=== PATIENT | female | born 1965 | race Caucasian/White ===

== ENCOUNTER 2018-07-06 14:55 | Inpatient (IN) | payer OTHER ==
[~2018-07-06] VITALS: Ht 165.1 cm; Wt 52.5 kg
--- NOTE | ~2018-07-06 | D ---
[facility] [place] [address] DISCHARGE SUMMARY Name: GRICEL CROFT Room #: 52-B DIS IN M.R.#: [id number] Admission: 07/06/18 ������������������ Attend Phys: Wong Dc DO Discharge: 07/12/18 ������������������ Date of : 61 Report #: [id number] THIS REPORT FOR: //name// CC: Wong Green DATE OF SERVICE: 07/12/2018 ATTENDING PHYSICIAN: Wong Dc DO. RUG INSPECTOR HELPER: Gabe Green MD. DISCHARGE DIAGNOSIS: Schizophrenia. MEDICAL COMORBIDITIES: Include urinary tract infection, irritable bowel syndrome, right upper extremity amputation, history of alcoholism, cardiomyopathy, restless legs syndrome and addictive personality features. DISCHARGE DIET: Regular. ACTIVITY LEVEL: As tolerated. No alcohol, no illicit drugs. She is discharged back to the [facility]. DISCHARGE MEDICATIONS: Risperidone 1 mg p.o. at 1800. She is currently on Risperdal Consta 50 mg that is being administered by residential care facility, she was ____, Seroquel 75 mg p.o. at bedtime p.r.n. for sleep, hydroxyzine 25 mg p.o. q. 6 hour p.r.n. for anxiety and agitation, tamsulosin 0.4 mg p.o. daily for urinary retention, ibuprofen 800 mg p.o. t.i.d., MiraLax 17 g powder p.o. daily reconstituting in 8 ounces of water, Seroquel 25 mg p.o. q. 4 hours p.r.n. for psychosis. BuSpar was discontinued this admission. LABORATORY DATA THIS ADMISSION: CBC: H and H 12.6 and 37.4, white count 7.6, platelets 195,000. Chemistry: Sodium 135, potassium 3.8, chloride 100, bicarb 25, BUN 10, creatinine 0.9, estimated GFR 65, glucose 99, calcium 8.7, AST 14, ALT 12, alkaline phosphatase 112. Troponin less than 0.06. Albumin 3.9. TSH 0.650. This was done on 07/06/2018. Urinalysis done on 07/08/2018 was negative. The one from the 8th showed E. coli with probable extended spectrum beta lactamase inhibitor properties. She is currently treated with nitrofurantoin. DISCHARGE INSTRUCTIONS: The patient will receive her psychiatric care. She is due to see Dr. Dill on 07/16/2018 during his rounds at the facility. REASON FOR ADMISSION: Increased auditory hallucinations and irritability. HOSPITAL COURSE: The patient was admitted to the Geriatric Psychiatry Unit. [address] [address] DISCHARGE SUMMARY Name: GRICEL CROFT Room #: 522B-B [facility] IN M..#: [id number] Admission: 07/06/18 ������������������ Attend Phys: Wong Dc, Discharge: 07/12/18 ������������������ Date of : 61 Report #: [id number] Initially, she had a rapid and unexpected resolution of her auditory hallucinations ____. The patient showed an inconsistent verbal report and symptomatology often requesting hydroxyzine to relieve the hallucinations. The patient denied there were other factors such as not getting along with peers. It was felt the patient would be best served by returning to facility as she really was not making further gains in her inpatient psychiatric status. PHYSICAL EXAMINATION: VITAL SIGNS: On the day of discharge, temperature 36.8, pulse 73, respirations 16, BP 102/62, O2 sat 97%. MUSCULOSKELETAL: Normal gait and station. Right upper extremity stump noted. MENTAL STATUS EXAM: This is a well-developed, well-nourished female, appearing stated age. Attention intact. Concentration intact. Speech is normal rate, volume and tone. Thought process linear and goal directed. Thought content: Focused on medications. Mood and affect was congruent and constricted. Denied SI or HI. Denied hopelessness or helplessness. Denied homicidal intent or plan. Memory not formally tested. Insight limited. Judgment limited. Fund of knowledge below average. Prognosis for the patient is fair as she complies with her psychiatrist and other medical technologist chief treating her. ��������������������������������������������� ���������������������������������������� By: ��������������������������������������������� 11 42 Wong Dc, /nt
[2018-07-06 15:20] LABS: URINE BILIRUBIN NEGATIVE (Negative); URINE BLOOD NEGATIVE (Negative); URINE CLARITY CLEAR; URINE COLOR YELLOW; URINE GLUCOSE-RANDOM* NEGATIVE (Negative); URINE KETONES NEGATIVE (Negative); URINE PROTEIN (DIPSTICK) NEGATIVE (Negative); URINE UROBILINOGEN 0.2 E.U./dl (0.2-1.0)
[2018-07-06 15:21] LABS: URINE LEUKOCYTES-REFLEX 3+ (Negative); URINE NITRITE-REFLEX POSITIVE (Negative)
--- NOTE | 2018-07-06 15:28 | EKG ---
[place] [address] [facility] [place] [address] ELECTROCARDIOGRAM REPORT Name: GRICEL CROFT Room #: [facility] M.R.#: [id number] ������������������ Admission: ������������������ Attend Phys: Discharge: ������������������ Date of : 61 Report #: [id number] ����������������������������������������������������������������� [id number] THIS REPORT FOR: //name// [facility] ED Test Date: 2018-07-06 Test Time: 15:21:21 Pat Name: GRICEL CROFT Department: Room: Gender: F Security Auditor: FABIO : 1965 Requested By: Guru Concepcion Order Number: [id number] MD: Ata Petersen Measurements Intervals [place] Rate: 76 P: 29 TX: 153 QRS: 24 QRSD: 96 T: 41 QT: 400 QTc: 450 Interpretive Statements Sinus rhythm RSR' in V1 or V2, right VCD No previous ECG available for comparison Electronically Signed On 07-06-2018 15:28:09 CDT by Ata Petersen [email or web address] ��������������������������������������������� <ELECTRONICALLY SIGNED> ���������������������������������������� By: Ata Petersen MD, [facility] ��������������������������������������������� 07/06/18 1528 1521 1521 Ata Petersen MD, FACC /EPI
[2018-07-06 15:30] LABS: ABSOLUTE NEUTROPHILS 4.3 thou/uL (1.4-8.2); BASOPHILS 0.7 % (0.0-2.0); EOSINOPHILS 1.4 % (0.0-3.0); HEMATOCRIT 37.4 % (37.0-47.0); HEMOGLOBIN 12.6 gm/dL (12.0-15.0); LYMPHOCYTES 32.9 % (24.0-44.0); MCH 28.6 pg (26.0-34.0); MCHC 33.7 g/dL (28.0-37.0); MCV 84.9 fL (80.0-100.0); MONOCYTES 7.7 % (1.0-8.0); PLATELET COUNT 195 thou/uL (150-400); POLYS 57.3 % (36.0-66.0); RBC 4.41 mil/uL (4.20-5.00); RDW 13.6 % (10.5-14.5); WBC 7.6 thou/uL (4.0-11.0)
[2018-07-06 15:30] LABS: AMP/METHAMP Negative (Negative); BARBITURATES Negative (Negative); BENZODIAZEPINES Negative (Negative); COCAINE Negative (Negative); METHADONE Negative (Negative); OPIATES Negative (Negative); PCP Negative (Negative)
[2018-07-06 15:34] LABS: BACTERIA-REFLEX >30 Many /HPF (None Seen); CASTS None Seen /LPF (None Seen); CRYSTALS None Seen /LPF (None Seen); SQUAMOUS 0-3 Few /LPF (0-3); URINE WBC-REFLEX 6-15 Few /HPF (0-5)
[2018-07-06 15:35] LABS: URINE RBC None Seen /HPF (0-2)
[2018-07-06 15:46] LABS: ANION GAP 10 mmol/L (7-16); BUN 10 mg/dL (7-18); CALCIUM 8.7 mg/dL (8.5-10.1); CHLORIDE 100 mmol/L (98-107); CO2 25 mmol/L (21-32); CREATININE 0.9 mg/dL (0.6-1.0); GLUCOSE 99 mg/dL (74-106); POTASSIUM 3.8 mmol/L (3.5-5.1); SODIUM 135 mmol/L (136-145)
[2018-07-06 15:52] LABS: ALBUMIN 3.9 g/dL (3.4-5.0); SALICYLATE < 2.8 mg/dL (2.8-20.0); SGOT 14 U/L (15-37); SGPT 12 U/L (30-65); TOTAL BILIRUBIN 0.2 mg/dL (<0.1-1.0); TROPONIN-I <0.06 ng/mL (<0.06)
[2018-07-06 18:14] VITALS: BP 147/82
--- NOTE | 2018-07-06 18:44 | NUR ---
PATIENT ADMITTED TO ROOM 522B, PER ORDERS DR. COLE, FOR DEMENTIA, HALLICUNATIONS. BP 151/83, 74-20, R20, O298%. LCTA, ACTIVE BOWEL SOUNDS, NO SKIN INTACT, NO BREAKDOWN. PATIENT EXPRESSED NO S/I UPON ADMISSION. ADMITTIED TO HAVING HALLUCINATIONS. PUT HER JEANS, BRA AND SWEATER. PROVIDED A SNACK AFTER ADMISSION, NO SANDWICHES AVAILABLE IN [place].
[2018-07-06] MEDS ORDERED: SEROQUEL 50 MG50 MG PO (19:36)
[2018-07-06] MEDS ORDERED: FLOMAX0.4 MG PO (19:37)
[2018-07-06] MEDS ORDERED: BUSPIRONE HCL10 MG PO (19:38)
[2018-07-06] MEDS ORDERED: IBUPROFEN 800800 M1 PO (19:39)
[2018-07-06] MEDS ORDERED: RISPERDAL50 MG/2 ML IM (19:39)
[2018-07-06] MEDS ORDERED: MIRALAX17 GM PO (19:40)
[2018-07-06] MEDS ORDERED: SEROQUEL 25 MG25 M2 PO (19:41)
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
[2018-07-07 07:25] VITALS: BP 130/68
[2018-07-07 07:43] VITALS: BP 130/68
--- NOTE | 2018-07-07 08:20 | NUR ---
PT OFFERED BREAKFAST THIS AM. PT STATED SHE DOESN'T EAT BREAKFAST. REFUSED TO EAT THIS AM.
--- NOTE | 2018-07-07 09:58 | NUR ---
PT AWOKE THIS AM. TOOK AM MEDS WITHOUT ANY ISSUES. TALKING TO DR. COLE AT THIS TIME IN HIS OFFICE. PT STATED SHE HAS SOME PAIN TO RT ABD AND BACK OF 4 ON 1-10 SCALE.
--- NOTE | 2018-07-07 10:27 | NUR ---
WANTS PT TO STAY TILL WEDNESDAY. PT STATED SHE DIDN'T WANT TO STAY ALL WEEKEND DUE TO NO VOICES SINCE YESTERDAY.
--- NOTE | 2018-07-07 10:35 | NUR ---
ADM MILK OF MAG 10ML PO FOR COMPLAINTS OF CONSTIPATION. PT WATCHING JUAREZ IS RIGHT AT THIS TIME. TALKING TO SELF PERIODICALY.
--- NOTE | 2018-07-07 12:05 | NUR ---
PT WANTING TO GO HOME TOMMORROW IF OK. PT ASKING IF PUT SELF IN HOSPITAL IF THEY CAN LEAVE WHEN WANTING.
--- NOTE | 2018-07-07 14:44 | NUR ---
PT WANTED VISTERIL FOR HEARING VOICES. ASKED DR. COLE, STATED SHE HAS PRN QUETIAPINE. PT STATED THAT DOES NOT WORK AND MADE HER SLEEPY. PT DID TAKE QUETIAPINE 25MG PO FOR HEARING VOICES.
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
--- NOTE | 2018-07-07 18:37 | NUR ---
PERFORMED BLADDER SCAN AFTER VOID. GOT 57ML OUT. PT STATED SHE HAS BEEN HAVING SOA TODAY. ASKED IF PT TOLD DRJayshree SHE STATED NO SHE DIDN'T. PT STILL HEARING VOICES. PT TOLD TODAY THAT SHE IS NOT ACTING OUT THE VOICES AND THE VOICES ARE NOT HAPPY ABOUT IT.
[2018-07-07 20:20] VITALS: BP 121/78
[2018-07-07 22:03] VITALS: BP 121/78
--- NOTE | 2018-07-08 03:36 | NUR ---
PT QUIET AND COOPERATIVE. RESTING QUIETLY IN ROOM. DID NOT COME OUT FOR EVENING SNACKS. TOOK HS MEDS PRESCRIBED. MINIMAL INTERACTIONS WITH STAFF.
[2018-07-08 07:35] VITALS: BP 112/62
--- NOTE | 2018-07-08 09:04 | NUR ---
ASSUMED PATIENT CARE AT 0700. PATIENT LYING IN BED, SUPINE POSITION, EYES CLOSED. REFUSED TO GET UP PER AIDE. NURSE SUCCESSFULLY PATIENT TO GET UP FOR BREAKFAST; ATE 25% OF MEAL.
--- NOTE | 2018-07-08 09:13 | NUR ---
MARY recieved verbal consent by Delphine in the Public Admin. Office on July 06, 2018 to treat the pt. MARY mention that there will be update reports concerning pt treatment sent. MARY will follow-up with Delphine on July 12, 2018.
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
--- NOTE | 2018-07-08 18:10 | HC ---
[facility] [address] [place] [address] CONSULTATION Name: GRICEL CROFT Room #: 522B-B ADM IN M.R.#: [id number] Admission: 07/06/18 ������������������ Attend Phys: Wong Dc DO Discharge: ������������������ Date of : 61 Report #: [id number] THIS REPORT FOR: //name// CC: Wong Green DATE OF SERVICE: 07/07/2018 Medicine consult on the behavioral health unit. CHIEF COMPLAINT: "The voices won't leave me along". HISTORY OF PRESENT ILLNESS: This is a 53-year-old white female, resident of [facility] in [place], [place] who has been having increasing difficulties coping with "the voices telling me I am a pedophile". She denies any other significant changes in physical symptoms, but she does have very prominent somatic complaints dating back several years at least. These include fear of developing cancer and complaints of straining with bowel movements and urination, sleep disturbances, fatigue, loss of appetite, numbness in her left foot, etc. 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 She has a urinary tract infection with extended spectrum beta lactamase methicillin-resistant E. coli. She has irritable bowel syndrome and a prior history of alcoholism, but has not been drinking in several years, peripheral neuropathy, and malnutrition. She did have the DTs in her past history, although, I have never witnessed her having that problem. She has restless legs syndrome. She has had a tonsillectomy and a right facial reconstruction as well as the right arm amputation and wisdom teeth removed. She also had bilateral cataracts removed and intraocular lens was placed. She has had problems with tinnitus and urine retention as well. Also includes bipolar disorder, not otherwise specified and chronic spit schizophrenia. ALLERGIES: She has no known drug allergies. MEDICATIONS: List at the time of this admission includes: 1. Seroquel. 2. Tamsulosin. 3. Tylenol. 4. BuSpar. 5. Risperdal. 6. Ibuprofen. 7. MiraLax. 8. Seroquel. 9. Famotidine. 10. Chlorhexidine Peridex rinses twice daily. [facility] [address] [place] [address] CONSULTATION Name: GRICEL CROFT Room #: 522B-B ADM IN M.R.#: [id number] Admission: 07/06/18 ������������������ Attend Phys: Wong Dc DO Discharge: ������������������ Date of : 61 Report #: [id number] 11. Abilify. 12. Milk of magnesia p.r.n. 13. Artificial tears. Recently taken off of hydroxyzine in favor of BuSpar. Most recently, Dr. Coy, her psychiatrist, increased her Risperdal Consta to 50 mg IM every 2 weeks for psychosis. FAMILY HISTORY: Not obtainable. SOCIAL HISTORY: The patient resides in [facility] as above. She is not , does not have children. She smokes at least 6 cigarettes per day and has not been drinking alcohol for several years. REVIEW OF SYSTEMS: The patient reports headaches, visual changes, auditory hallucinations, sore throat, chest pain, she denies shortness of breath. She has pain and numbness in all 4 extremities off and on. She has some episodes of constipation. She has generalized weakness and fatigue. She has to strain when she has bowel movements or urination. PHYSICAL EXAMINATION: GENERAL: The patient is a pleasant middle-aged female, in no distress at the time of my exam. HEENT: Extraocular muscles intact. Oropharynx is moist and pink. No lesions, no exudates. NECK: Supple, no adenopathy, thyromegaly, mass, JVD or bruit. LUNGS: Clear bilaterally. CARDIOVASCULAR: Reveals a regular rhythm. ABDOMEN: Soft. Bowel sounds present, no visceromegaly. She does have some slight right upper quadrant tenderness that is not reproducible. There is no guarding or rebound either. 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 Peripheral pulses are palpable in all 4 distal extremities. MENTAL STATUS: The patient is alert. She is oriented to person, place, not time. She has auditory hallucinations. She describes it as voices telling her that she is a pedophile and she is an unfit surrogate mother. She also reports that since she was admitted yesterday, the voices are greatly diminished. She also states that she sleeps better here than she did normally at [place]. Rest of her neurologic exam was at baseline. Since arrival at [facility], the patient had a rapid urine drug screen, which was negative for amphetamines and methamphetamines, barbiturates, benzodiazepines, cocaine, methadone, opiates, PCP and THC. [facility] [address] [place] [address] CONSULTATION Name: GRICEL CROFT Room #: 522B-B [facility] IN M.R.#: [id number] Admission: 07/06/18 ������������������ Attend Phys: Wong Dc, DO Discharge: ������������������ Date of : 61 Report #: [id number] LABORATORY DATA: The urinalysis showed 3+ white blood cells on the dipstick 6-15 on microscopic and greater than 30 bacteria per high power field, which was significantly elevated, 0-3 epis were noted on the microscopy. On the CBC, her white blood cell count was 7600 with a differential, 57.3 segmented neutrophils, 32.9 lymphocytes, 7.7% monocytes, eosinophils 1.4%, and basophils 0.7%. Hemoglobin was 12.6, hematocrit 37.4, MCV 84.9, RDW 13.6, all within normal limits; and the platelet count was normal at 195,000. The ANC was 4300 per microliter and normal. Chemistry showed sodium 135, potassium 3.8, chloride 100, bicarbonate 25, BUN 10, and creatinine 0.9. The anion gap was 10. Glucose was 99, nonfasting. AST was 14, ALT was 12, both normal. Total bilirubin was 0.2 and normal. Calcium was 8.7 and normal. Alkaline phosphatase was 112 and normal. Total protein was 7.0 and albumin of 3.9, both normal; and the estimated glomerular filtration rate was 65 and normal. Troponin was less than 0.06. Both acetaminophen and salicylate levels were within the lower limits of the ability to test in our lab. Alcohol level was less than 10 mg/dL and negative. The EKG that was done in the Emergency Room showed a sinus rhythm with a rate of 76 per minute. RSR prime in V1 or V2 with right ventricular conduction delay. ASSESSMENT AND PLAN: 1. Schizophrenia and bipolar affective disorder-we will defer to Dr. Dc and his team. 2. Urinary tract infection. We will culture and start the patient on empiric antibiotic therapy. 3. Anxiety-The patient seems much better. She has had a good night rest. We will defer on this otherwise to Dr. Dc as well. 4. Irritable bowel syndrome. We will monitor and treat accordingly. I suspect it is probably much better when her mental status is improved. 5. The patient told me she feels better already and would like to go back to [facility]. I explained that I was not in charge of this unit and that it would be up to Dr. Dc and his staff as to when she was discharged again. I did advise her to stay for a few days while we get her psychiatric problems sorted out and she said she would. ��������������������������������������������� <ELECTRONICALLY SIGNED> ���������������������������������������� By: Gabe Green MD ��������������������������������������������� 07/08/18 1810 [id number] Gabe Green MD /nt
[2018-07-08 18:20] LABS: URINE BILIRUBIN NEGATIVE (Negative); URINE BLOOD NEGATIVE (Negative); URINE CLARITY CLEAR; URINE COLOR YELLOW; URINE GLUCOSE-RANDOM* NEGATIVE (Negative); URINE KETONES NEGATIVE (Negative); URINE LEUKOCYTES TRACE (Negative); URINE NITRITE NEGATIVE (Negative); URINE PROTEIN (DIPSTICK) NEGATIVE (Negative); URINE SPECIFIC GRAVITY <= 1.005 (1.005-1.035); URINE UROBILINOGEN 0.2 E.U./dl (0.2-1.0)
[2018-07-08 19:57] VITALS: BP 160/90
--- NOTE | 2018-07-08 22:15 | NUR ---
THIS NURSE WAS OUTSIDE OF PATIENTS ROOM AND OBSERVED PATIENT STATING TO HERSELF 'NO THIS IS NOT ME TALKING.' 'I DONT KNOW WHO IT IS BUT ITS NOT ME' PATIENT WAS VISIBLY ROLLING AROUND IN BED WITH A TENSE AFFECT. THIS NURSE WITNESSED NO OTHER PATIENT/STAFF IN ROOM. WILL CONTINUE TO MONITOR AND NOTIFY NURSE IN CHARGE OF CARE.
--- NOTE | 2018-07-09 03:45 | NUR ---
ASSUMED CARE @ 19:15. ON MACROBID FOR UTI. HEART RRR, LUNGS CTA ALL LOERA. ABD NORMOACTIVE BOWEL SOUNDS. REPORTS BMX2 TODAY. VSS. REPORTS THAT SHE SMOKES, BUT DOES NOT CARE FOR THE NICOTINE PATCH BECAUSE THE ADHESIVE STINKS WHEN SHE TAKES IT OFF. DISCUSSED ASKING DR FOR ALTERNATE FORM OF SMOKING CESSATION MED IF SHE FEELS THE NEED FOR IT. STATED THAT SHE DOES NOT WANT ANYTHING AT THIS TIME. REPORTS SEEING IMAGES OF RELIGOUS SAINTS WHO TALK TO HER. REPORTS THAT SHE SAW SOMEONE SITTING ON HER BED TODAY. WILL CONTINUE TO MONITOR.
[2018-07-09 07:00] VITALS: BP 98/58
--- NOTE | 2018-07-09 12:35 | NUR ---
ASSUMED PATIENT CARE AT 0700; PATIENT IN BED AT THAT TIME, DID NOT WANT TO GET UP FOR BREAKFAST, ATE 25% OF MEAL. COMPLIANT WITH MEDICATIONS, SEEN BY DR. GRECO, HOSPITALIST PRESS MACHINE FEEDER. PATIENT STATES THAT DR. GRECO ORDERED EKG; HOWEVER, NOT IN COMPUTER YET. VSS, NO CHEST PAIN, PATIENT APPEARS RELAXED MOOD. FLAT AFFECT, NO BEHAVIORAL ISSUES TO DATE THIS SHIFT. NO HALLLICUNATIONS OBSERVED OR STATED AT THIS ITME.
[2018-07-09 20:46] VITALS: BP 151/78
--- NOTE | 2018-07-10 00:02 | NUR ---
UPON INITITAL ASSESSMENT THIS PM IS SITTING IN DAYROOM BUT IS WITHDRAWN FROM PEERS SITTING WITH HEAD DOWN ON TABLE AND WILL OCCASSIONALLY LOOK AROUNND AND BE MUMBLING TO SELF-BLUNTED AFFECT-DOES CONVERSE WITH THIS FOOD SERVICE HELPER WHEN APPROACHED BUT CONVERSATION IS FOCUSED ONLY ON SOMATIC CONCERNS/COMPLAINTS-STATES MOOD IS "NERVOUS" AND REPORTS FEELING SCARED TO GO BACK TO ROOM TONIGHT TO SLEEP-REQUESTING TO SLEEP ON COUCH.EPORTS FEELING LIKE ONE OF MY NEW MEDS IS HURTIN MY KIDNEYS" ALSO STATES "ONE OF THE NEW MEDS IS GIVING ME RESTLESS LEG" ATTEMPTED TO CALL PCP FOR REQUIP "0" NO RETURN CALL RECEIVED AND PT ASLEEP ATTHIS TIME
[2018-07-10 07:20] VITALS: BP 143/80
--- NOTE | 2018-07-10 13:18 | NUR ---
ASSUMED CARE AT 0700 THIS MORNING. PT. IN HER ROOM UPSET BECAUSE HER BACK HURTS. SHE STATED SHE NEEDS MEDICATION OR SHE CANNOT GET UP TODAY DUE TO THE INFLAMATION IN HER BACK. PT. DID NOT GET UP FOR BREAKFAST. AFTER MORNING MEDS WERE PASSED, PT. CAME INTO THE [facility]. SHE SAT QUIETLY AND CONVERSED WITH ONE PEER. AT 11:00 SHE COMPLAINED SHE NEEDED MORE MEDICATIONS FOR WRESTLESS LEGS AND ONE FOR ANXIETY. SHE WAS INFORMED THE WRESTLESS LEG SYNDROM MEDICATION READ THAT IT WAS A ONE TIME MEDICATION AND AT HS. IBUPROFEN WAS PROVIDED PER SCHEDULED DOSE AND WAS ALSO GIVEN HER ANXIETY MEDICATION. SHE ACCEPTED THIS. ON THE UNIT FOR LUNCH AND PM GROUP. COMPLIANT WITH TAKING HER MEDICATIONS.
[2018-07-10 20:33] VITALS: BP 118/61
--- NOTE | 2018-07-11 | NUR ---
ASSUMED CARE @ 19:15, IN DAY ROOM SITTING WITH FEET PROPPED IN A CHAIR, WATCHING TV. TOOK 2100 MEDS EXCEPT THAT SHE REFUSED DOK PLUS, SAYING THAT IT HAS A SMELL AND HER BODY TAKES ON THAT SMELL WHEN SHE TAKES IT. ASKED FOR PRN ROPINOL WHICH WAS PROVIDED. SHE THEN WENT TO BED. REPORTED HEARING VOICES TALKING TO HER SOMEWHAT, AND WHEN SHE WAS IN HER ROOM, HEARD SPEAKING TO AN UNSEEN ENTITY. WILL CONTINUE TO MONITOR.
[2018-07-11 07:50] VITALS: BP 101/60
--- NOTE | 2018-07-11 15:52 | NUR ---
Pt will d/c tomorrow to [facility]. MICHELLE faxed the pt d/c to notes in the facility. MICHELLE scheduled transportation setup for the pt to be transported. MICHELLE left a voicemail for pt MAYE Cabrera. Michelle will follow-up with upon discharge.
--- NOTE | 2018-07-11 17:23 | NUR ---
ASSUMED CARE AT 0700 THIS MORNING. PT. IN HER BED THIS MORNING REQUESTING PAIN MEDICATION FOR HER BACK. PT. GIVEN HER MORNING MEDICATIONS. SHE DID NOT GET UP FOR BREAKFAST. SHE GOT UP AFTER MORNING GROUP HAD BEEN COMPLETED. SHE SAT ON THE UNIT OF AND ON ALL DAY. THE AND THIS KENNEL SUPERVISOR TALKED TO THE PT. ABOUT ESBL ECHOLI IN THE PT.'S URINE. PT. VERBALIZED UNDERSTANDING. OF THIS INFORMATION. . TO LOOK AT THE SENSITIVITY AND DECIDE IF A MEDICATION CHANGE IS NEEDED. TALKED TO PT. ABOUT WIPING HERSELF FROM FRONT TO BACK. AGAIN TODAY SHE HAS ASKED FOR HYDRALIZINE AT 1715 BUT WAS ASKED TO WAIT UNTIL THE 2100 DOSE WAS GIVEN TO NOT BE TOO OVERMEDICATED ON THIS MEDICATION. SHE FROWNED AT THIS KENNEL SUPERVISOR BUT DID NOT ARGUE. THIS KENNEL SUPERVISOR ALSO DISCUSSED THIS MEDICATION REQUEST WITH DR. COLE WHO AGREED WITH THIS RN.
[2018-07-11 17:38] VITALS: BP 101/60
[2018-07-11 19:44] VITALS: BP 125/77
--- NOTE | 2018-07-12 04:33 | NUR ---
UPON INITIAL ASSESSMENT THIS PM AT 1944 SITTING IN DAYROOM AT TABLE BY SELF-NO NOTED INTERACTION WITH PEERS AND [facility] EYE CONTACT INITALLY WITH THIS RN-BLUNTED AFFECT-DYSPHORIC MOOD-STATES AT 2044 LOUDLY-"GIVE ME MY TRANQUALIZERS NOW I CAN'T TAKE IT ANYMORE" WHEN ASKED FOR CLARIFICATION STATES SHE HAS BEEN HEARING VOICES TELLING HER SHE IS A BAD PERSON AND A PEDOPHILE FOR MOST OF PM-HS MEDICATIONS GIVEN AND PT RETURNED TO DAYROOM TO WATCH TV STATING SHE WAS "SCARED" TO GO TO ROOM. APPROX 40 MIN AFTER RECEIVING HS MEDS APPROACHED NURSES STATION STATING "I THREW UP MY PILLS I NEED MORE" SMALL AMOUNT PHLEGM OBSERVED HOWEVER NO PILL FRAGMENTS OR EVIDENCE OF PILLS IN EMESIS. DID GO TO ROOM APPROX 2200 BUT RESTLESS REPORTS UNABLE TO SLEEP D/T LEGS MOVING CONSTANTLY- NOTIFIED REQUIP 0.25MG PO PRN FOR ABOVE REPORTED
[2018-07-12] MEDS ORDERED: SEROQUEL 25 MG25 M1 PO (10:05)
[2018-07-12 10:06] VITALS: BP 102/62
[2018-07-12] MEDS ORDERED: RISPERDAL 1 MG T1 MG PO (10:08)
[2018-07-12] MEDS ORDERED: HYDROXYZINE HCL25 M1 PO (10:08)
--- NOTE | 2018-07-12 11:17 | NUR ---
PATIENT WAS ASLEEP WHEN CARE ASSUMED, REFUSED TO GET OUT OF BED FOR BREAKFAST, STATES " I DON'T EAT BREAKFAST". MORNING MEDICATION ADMINISTERED AT BED SIDE. PATIENT DENIES SUICIDAL AND HOMOCIDAL IDEATION. PATIENT AKNOWLEDGES HEARING VOICES, ATARAX GIVEN PER HER REQUEST. NO AGITATION OR AGGRESSIVE BEHAVIOR NOTED. PATIENT DISCHARGED BACK TO [facility] TODAY BY DR. COLE, REPORT CALLED TO NURSE (TERELL), AWAITING PICK-UP, WILL MONITOR FOR SAFETY.
== END 2018-07-12 11:48 | DRG 885 ==
LOC: ER 14:55 → SBH 16:00 → EROBS 16:00 → SBH 18:07
PROVIDERS: Emergency Medicine; Internal Medicine; ADMIT Psychiatry & Neurology Psychiatry
DX: F20.89 Other schizophrenia (principal); N39.0 Urinary tract infection, site not specified; F29 Unspecified psychosis not due to a substance or known physiological condition; F41.9 Anxiety disorder, unspecified; F31.9 Bipolar disorder, unspecified; K58.9 Irritable bowel syndrome, unspecified; Z82.49 Family history of ischemic heart disease and other diseases of the circulatory system; Z82.0 Family history of epilepsy and other diseases of the nervous system; Z79.899 Other long term (current) drug therapy; Z88.6 Allergy status to analgesic agent; Z89.111 Acquired absence of right hand
CPT/HCPCS: 10880